=== PATIENT | female | born 1940 | race Caucasian/White ===

== ENCOUNTER 2023-10-05 11:21 | Outpatient (CLI) | payer MEDICARE, SELFPAY ==
--- NOTE | 2023-10-05 11:25 | CT_ITS ---
WS: [id number] CT ABDOMEN AND PELVIS NONCONTRAST HISTORY: PELVIC MASS TECHNIQUE: Imaging performed through the abdomen and pelvis. Coronal and sagittal reformats are submi tted. All CT scans at [facility] use at least one of these dose optimization techniques: auto mated exposure control; mA and/or kV adjustment per patient size (includes targeted exams where dose is matched to clinical indication); or iterative reconstruction. DLP: 508.92 mGy.cm COMPARISON: Renal ultrasound 09/13/2023 and 04/22/2023 Lower thorax: Lung bases are clear. Visualized heart is normal. No hiatal hernia. Liver: Normal size liver. No mass or bile duct dilatation. Gallbladder: Normal gallbladder. No pericholecystic fluid or cholelithiasis. No gallbladder wall thic [place]. Pancreas: Normal size and attenuation. Normal pancreatic duct. No pancreatitis or mass. Spleen: Normal. Adrenal glands: Normal. No mass. Right kidney: Moderate atrophy with diffuse cortical thinning. Simple cyst 2.0 cm in the lower pole. This was described also by prior renal ultrasound. There is an additional 6 mm too small to character ize hypodensity in the lower kidney. No stone or obstruction. Left kidney: Moderate atrophy with diffuse cortical thinning. On prior renal ultrasounds the possibil ity of a renal mass was of concern in the mid to lower renal pelvis. By noncontrast CT no mass is kenji ntified. There is symmetric thinning of the cortex. Prominent fat in the renal sinus. There is no obs truction. Aorta: Mild atherosclerosis abdominal aorta with no aneurysm. No free fluid, intraperitoneal air or significant lymphadenopathy. GI tract: No obstruction. No small bowel obstruction. Moderate diffuse constipation. Normal appendix. Abdominal wall: Small umbilical hernia contains fat only. Pelvis: Atrophic uterus. Nondistended urinary bladder. There is very mild bladder wall thickening whi ch is probably related to the nondistention. Osseous structures: No destructive bone lesions. Advanced degenerative changes throughout the lumbar spine. IMPRESSION: 1. Moderate atrophy of each kidney with no obstruction. 2. No masses are identified on this noncontrast CT in the LEFT kidney. With the extent of renal atro phy and replacement of the renal sinus with fat a significant mass should be readily visible resultin g in some asymmetry. There are no suspicious areas within the LEFT kidney. 3. RIGHT renal cyst. 4. Diffuse constipation. 5. Mild bladder wall thickening may be related to nondistention. If hematuria continues cystoscopy m ay be of benefit.
[2023-10-05] MEDS: iohexol 350 mg/mL 500 mL Btl (per mL) PO (12:06)
[2023-10-05 12:29] LABS: Blood Urea Nitrogen 43 mg/dL (8-23)
== END 2023-10-05 11:22 | disposition home or self-care (01) ==
LOC: RAD 11:22
PROVIDERS: Radiology Diagnostic Radiology; PCP Family Medicine; Visit Provider Family Medicine
DX: R19.00 Intra-abdominal and pelvic swelling, mass and lump, unspecified site (principal)
CPT/HCPCS: 74176; 82565; 84520; Q9967

== ENCOUNTER 2023-10-11 14:15 | Outpatient (CLI) | payer MEDICARE, SELFPAY ==
--- NOTE | 2023-10-11 14:19 | MR_ITS ---
WS: [id number] MRI/MRCP OF THE ABDOMEN WITHOUT GADOLINIUM ENHANCEMENT TECHNIQUE: Coronal T2 Fase BH, Axial T2 Fase BH, Axial T2 FS BH, Zxial 3D Almendarez BH, Axial DWI BH, 2D MRCP Radial BH, 3D MRCP (Resp), and Axial 3D Dyn BH Post sequences. CLINICAL INFORMATION: PURE HYPERCHOLESTEROLEMIA COMPARISON: CT 10/05/2023 and ultrasound 09/13/2023 FINDINGS: Images degraded by patient motion. Bilateral renal cysts. No hydronephrosis in either kidney. No evidence of enhancing LEFT renal mass. Tiny cyst upper pole LEFT kidney. Largest cyst RIGHT lower pole kidney measuring 1.9 x 1.9 cm. No enhancing renal lesions. Adrenal glands are normal. Normal caliber abdominal aorta. Pancreas not well visualized due to motion . Few hemangiomas in the lumbar spine. Impression: Images limited due to patient motion. 1. Small bilateral renal cysts. Largest cyst lower pole RIGHT kidney measuring 1.9 cm. 2. No evidence of LEFT renal mass. 3. No other acute findings.
[2023-10-11] MEDS: gadobenate dimeglumine 20 mL vial IV (15:10)
== END 2023-10-11 14:16 | disposition home or self-care (01) ==
LOC: RAD 14:15
PROVIDERS: PCP Family Medicine; Visit Provider Family Medicine
DX: E78.00 Pure hypercholesterolemia, unspecified (principal); N28.1 Cyst of kidney, acquired
CPT/HCPCS: 74183; A9577

== ENCOUNTER 2023-10-27 12:48 | Outpatient (CLI) | payer MEDICARE, SELFPAY ==
--- NOTE | 2023-10-27 12:52 | MR_ITS ---
WS: [id number] MRI OF THE PELVIS WITHOUT GADOLINIUM ENHANCEMENT. INDICATION: Hematuria. TECHNIQUE: Coronal T1, coronal STIR, axial T2 fat-sat, axial T1, sagittal T2 fat-sat. Patient deferred gadolinium enhancement due to history of kidney problems. COMPARISON: CT abdomen pelvis 10/05/2023 FINDINGS: Normal bone marrow signal in the pelvis and sacrum. No sacral insufficiency fractures. No edema withi n the bony pelvis or sacrum. Moderate degenerative arthritis sacroiliac joints. Moderate degenerative narrowing both hips. Normal bone marrow signal in the pubic rami. Mild degenerative arthritis pubic symphysis. Mild bladder wall thickening can be seen with chronic cystitis. This is similar to the prior CT. No v isualized polypoid lesions in the partially distended bladder although cystoscopy would be more sensi tive in further evaluation of hematuria. Mild sigmoid constipation. A few diverticuli. No inguinal ly mphadenopathy. No pelvic lymphadenopathy. Degenerative arthritis lower lumbar spine. MR/MR pelvis wo con* [id number] IMPRESSION: 1. Mild diffuse bladder wall thickening can be seen with chronic cystitis as s een on the prior CT. No visualized polypoid lesions in the partially distended bladder. Cystoscopy would be more sensitive in further evaluation of unexplaine d hematuria. 2. No inguinal or pelvic lymphadenopathy. 3. Mild sigmoid constipation. 4. Mild degenerative arthritis pubic symphysis. 5. No other acute findings.
== END 2023-10-27 12:49 | disposition home or self-care (01) ==
LOC: RAD 12:48
PROVIDERS: PCP Family Medicine; Visit Provider Family Medicine
DX: E78.00 Pure hypercholesterolemia, unspecified (principal); K59.00 Constipation, unspecified; M84.859 Other disorders of continuity of bone, unspecified pelvic region and thigh
CPT/HCPCS: 72195

== ENCOUNTER 2025-01-29 15:33 | Oncology outpatient (recurring) (ONCR) | payer MEDICARE, SELFPAY ==
[2025-01-29 16:34] LABS: Hematocrit 31.3 % (36-47); Hemoglobin 9.90 g/dL (11.27-16.99); Mean Corpuscular HGB Conc 31.6 g/dL (30-55); Mean Corpuscular Hemoglobin 31.2 pg (27-33); Mean Corpuscular Volume 98.7 fl (85-98); Nucleated Red Blood Cells % 0 %; Platelet Count 363 10^3/cmm (157-399); Red Blood Count 3.17 10^6/uL (3.85-5.65); White Blood Count 8.42 10^3/uL (3.29-11.43)
[2025-01-29 17:19] LABS: Alanine Aminotransferase 11 U/L (0-33); Albumin Level 4.3 g/dL (3.5-5.2); Alkaline Phosphatase 54 U/L (35-105); Anion Gap 18.1 (5-19); Aspartate Amino Transferase 19 U/L (0-32); Blood Urea Nitrogen 63 mg/dL (8-23); Calcium 10.1 mg/dL (8.5-10.5); Carbon Dioxide 21 mmol/L (22-29); Chloride 102 mmol/L (98-107); Creatinine Clr Calc Pharmacy 18.9157; Ferritin 14 ng/mL (15-150); Globulin 2.8 g/dL (1.3-4.6); Glucose 134 mg/dL (65-115); Iron 77 ug/dL (37-145); Osmolality Calculated 302 mOsm/kg (285-295); Potassium 5.1 mmol/L (3.5-5.1); Sodium 136 mmol/L (136-145); Thyroid Stimulating Hormone 1.18 uIU/mL (0.27-4.20); Total Iron Binding Capacity 332 mcg/dl; Total Protein 7.1 g/dL (6.6-8.7); Unsaturated Iron Binding 255 ug/dL (112-347); Vitamin B12 604 pg/mL (232-1245)
[2025-01-31 08:39] LABS: PROTEIN, TOTAL 7.0 g/dL (6.1-8.1)
[2025-02-01 16:33] LABS: KAPPA LIGHT CHAIN, FREE, SERUM 79.7 mg/L (3.3-19.4); KAPPA/LAMBDA LIGHT CHAINS FREE 2.66 (0.26-1.65); LAMBDA LIGHT CHAIN, FREE, SERU 30.0 mg/L (5.7-26.3)
[2025-02-02 09:15] LABS: ALPHA 1 GLOBULIN 0.2 g/dL (0.2-0.3); ALPHA 2 GLOBULIN 0.7 g/dL (0.5-0.9); BETA 1 GLOBULIN 0.5 g/dL (0.4-0.6); BETA 2 GLOBULIN 0.3 g/dL (0.2-0.5)
== END 2025-02-18 23:59 | disposition home or self-care (01) ==
PROVIDERS: PCP Family Medicine; Visit Provider Internal Medicine Medical Oncology
DX: D47.2 Monoclonal gammopathy (principal); D64.9 Anemia, unspecified; R53.83 Other fatigue; N18.9 Chronic kidney disease, unspecified
CPT/HCPCS: 36415; 80053; 82607; 82668; 82728; 82746; 82784; 83540; 83550; 83883; 83921; 84155; 84165; 84443; 85025; 86334; 99204

== ENCOUNTER 2025-01-31 13:23 | Outpatient (CLI) | payer MEDICARE, SELFPAY ==
[2025-02-01 07:44] LABS: Creatinine, Random Urine 34 mg/dL (20-275); Protein, Total, Random 9 mg/dL (5-24); Protein/Creatinine Ratio 0.265 (0.024-0.184); Protein/Creatinine Ratio 265 mg/g creat (24-184)
[2025-02-06 14:55] LABS: Albumin,Urine Random 0 %; Alpha-1-Globulins Urine Random 0 %; Alpha-2-Globulins Urine Random 0 %; Beta-Globulin,Urine Random 0 %; Gamma Globulin,Urine Random 0 %
== END 2025-01-31 13:24 | disposition home or self-care (01) ==
LOC: LAB 13:25
PROVIDERS: PCP Family Medicine; Visit Provider Nurse Anesthetist, Certified Registered
DX: Z01.89 Encounter for other specified special examinations (principal)
CPT/HCPCS: 82570; 84156; 84166

== ENCOUNTER 2025-02-26 14:45 | Oncology outpatient (recurring) (ONCR) | payer MEDICARE, SELFPAY | END 2025-03-20 23:59 | disposition home or self-care (01) | PROVIDERS: PCP Family Medicine; Visit Provider Internal Medicine Medical Oncology | DX: D47.2 Monoclonal gammopathy (principal); R53.83 Other fatigue; N18.9 Chronic kidney disease, unspecified; D50.9 Iron deficiency anemia, unspecified | CPT/HCPCS: 99212 ==